=== PATIENT | female | born 1975 ===

== ENCOUNTER 2020-11-13 09:40 | Outpatient (REF) | payer MEDICAID, SELFPAY ==
--- NOTE | 2020-11-13 | PFT_ITS ---
INDICATION: Asthma. SPIROMETRY: The FEV1 to FVC of 86% with an FEV1 of 2.11 L, which is 66% predicted and FVC of 2.46 L, which is 63% predicted. No significant response to bronchodilators noted. The patient does have some small airways disease consistent with history of asthma. Maximum voluntary ventilation 90% predicted. LUNG VOLUMES: Total lung capacity 66% predicted with a residual volume of 79% predicted. DIFFUSION CAPACITY: DLCO 55% predicted. COMPARISONS: None. INTERPRETATION: No obstructive ventilatory defect. No significant response to bronchodilators noted, although the patient does have some small airways disease. Normal maximal voluntary ventilation. However, the patient does have a moderate restrictive ventilatory defect suggestive of restrictive lung disease. The patient does have an elevated BMI and would need to assess the expiratory reserve volume. In the meantime, the patient does also have some moderate diffusion impairment secondary to the above. It does correct to normal when correcting for the alveolar volume suggesting that there is some degree of hypoexpansion of the lungs. Clinical correlation warranted. MD CB Xie/FABBY / [id number]
== END 2020-11-13 09:41 | disposition home or self-care (01) ==
LOC: HO.RESP 09:40
PROVIDERS: Visit Provider Internal Medicine
DX: J45.909 Unspecified asthma, uncomplicated (principal)
CPT/HCPCS: 94060; 94727; 94729

== ENCOUNTER 2020-12-03 07:30 | Outpatient (REF) | payer MEDICAID, SELFPAY | END 2020-12-03 07:31 | disposition home or self-care (01) | LOC: HO.LAB 07:30 | PROVIDERS: Visit Provider Internal Medicine | DX: Z20.822 Contact with and (suspected) exposure to COVID-19 (principal) | CPT/HCPCS: 36415; C9803; U0003; U0005 ==

== ENCOUNTER 2021-07-29 11:29 | Emergency (ER) | payer MEDICAID, SELFPAY ==
[2021-07-29 11:42] VITALS: BP 136/78; PULSE 96; RESP 18; TEMP 37.2; O2SAT 98; BMI 33.8
--- NOTE | 2021-07-29 13:56 | ED.GENADULT ---
HPI - General Adult General Chief complaint: General Medical Stated complaint: Multiple complaints Time Seen by Provider: 07/29/21 13:38 Source: patient Mode of arrival: ambulatory Limitations: no limitations History of Present Illness HPI narrative: Patient presents to ED for multiple complaints. Before I can go further into complaints or address and come up with plan patient states she had to leave and be with her daughter who was afraid due to her about to have a procedure. Patient states she will come back tomorrow. Patient did not stay for discharge papers or physical exam. Related Data Allergies Allergy/AdvReac Type Severity Reaction Status Date / Time aspirin [ASPIRIN] Allergy Unknown TACHYCARDIA, Unverified 06/21/20 16:12 heart racing ibuprofen [From MOTRIN] Allergy Unknown N/V Unverified 06/21/20 16:12 penicillin V Allergy Unknown rash, Unverified 09/21/19 00:00 itch, rash Penicillins [PENICILLINS] Allergy Unknown ITCHING/JOSE Unverified 06/21/20 16:12 H Motrin Allergy Unknown vomiting Uncoded 09/21/19 00:00 PMFSH Social History Social History Advance Directives: No Advance Directives Information Provided: Yes Patient : No Physical Exam Vital Signs: Vital Signs: Last Vital Signs Temp 98.9 F 07/29/21 11:42 Pulse 96 07/29/21 11:42 Resp 18 07/29/21 11:42 BP 136/78 07/29/21 11:42 Pulse Ox 98 07/29/21 11:42 Body Mass Index 33.8 Course Course Course Narrative: Patient states she had to leave. Reevaluation(s) Reevaluation #1: Patient eloped. Time: 13:58 Medical Decision Making MDM Narrative Medical decision making narrative: Multiple complaints Discharge Plan Discharge Clinical Impression: Chronic pain Patient Disposition: Elopement Discharge Date/Time: 07/29/21 13:57
--- NOTE | 2021-07-29 13:56 | PC.NURSE ---
PT CAME TO THIS RN STATING SHE NEEDS TO LEAVE TO BE WITH ANOTHER PATIENT IN THE ER WHO IS ASKING FOR HER. PT STATES SHE WILL RETURN ANOTHER TIME TO BE SEEN.
== END 2021-07-29 13:57 | disposition left against medical advice (07) ==
PROVIDERS: Emergency Provider Emergency Medicine; PCP Psychiatry & Neurology Psychiatry
DX: G89.29 Other chronic pain (principal)
CPT/HCPCS: 99281; 99282

== ENCOUNTER 2022-03-31 11:07 | Emergency (ER) | payer MEDICAID, SELFPAY ==
[2022-03-31 11:47] VITALS: BP 132/81; PULSE 80; RESP 16; TEMP 35.7; O2SAT 98; BMI 32.8
[2022-03-31] MEDS: Tetracaine HCl/PF 0.5% Oph Sol 4 ML DROPS 1 DROP EYE-RIGHT (11:59)
[2022-03-31] MEDS: Fluorescein Sodium STRIP 1 STRIP EYE-RIGHT (11:59)
--- NOTE | 2022-03-31 12:26 | ED.EYEPROB ---
HPI - Eye Problem General Chief complaint: Eye Problems Stated complaint: right eye glued closed Time Seen by Provider: 03/31/22 11:53 Source: patient and family Mode of arrival: ambulatory Limitations: no limitations History of Present Illness HPI Narrative: 46 years old female came in for evaluation of right eye pain and photophobia. While applying eye glue for eyelashes extension 2 days ago some of the glue went on her eye causing severe irritation, patient initially was not able to open her eyes which she forced them to open, patient is complaining of right eye redness and severe pain was seen at the urgent care 2 days ago diagnosed her with corneal abrasion and patient was prescribed erythromycin ointment patient returned today for worsening of the pain. Related Data Previous Rx's Medication Instructions Recorded erythromycin 5 mg/gram (0.5 %) eye 0.5 inch ophthalmic (eye) TID #3.5 03/31/22 ointment grams oxycodone 5 mg tablet 5 mg PO TID PRN pain #14 tabs 03/31/22 Allergies Allergy/AdvReac Type Severity Reaction Status Date / Time aspirin [ASPIRIN] Allergy Unknown TACHYCARDIA, Unverified 06/21/20 16:12 heart racing ibuprofen [From MOTRIN] Allergy Unknown N/V Unverified 06/21/20 16:12 penicillin V Allergy Unknown rash, Unverified 09/21/19 00:00 itch, rash Penicillins [PENICILLINS] Allergy Unknown ITCHING/JOSE Unverified 06/21/20 16:12 H Motrin Allergy Unknown vomiting Uncoded 09/21/19 00:00 Review of Systems Review of Systems: All other systems are reviewed and are negative Constitutional: Reports as per HPI and Reports no additional constitutional complaints Eyes: Reports as per HPI and Reports no additional eye complaints Reports system reviewed and no additional complaints, except as documented Cardiovascular: Reports as per HPI and Reports no additional cardiovascular complaints Respiratory: Reports as per HPI and Reports no additional respiratory complaints Gastrointestinal: Reports as per HPI and Reports no additional gastrointestinal complaints Genitourinary: Reports no additional female genitourinary complaints Musculoskeletal: Reports no additional musculoskeletal complaints Skin/Breast: Reports system reviewed and no additional complaints, except as docu Psychiatric: Reports no additional psychiatric complaints Endocrine: Reports no additional endocrine complaints Hematologic/Lymphatic: Reports no additional hematologic/lymphatic complaints Allergic/Immunologic: Reports no additional allergic/immunologic complaints Reports system reviewed and no additional complaints, except as documented and Reports Abnormal speech present [facility] Social History Social History Advance Directives: No Advance Directives Information Provided: No Physical Exam Vital Signs: Vital Signs: Last Vital Signs Temp 96.3 F L 03/31/22 11:47 Pulse 80 03/31/22 11:47 Resp 16 03/31/22 11:47 BP 132/81 03/31/22 11:47 Pulse Ox 98 03/31/22 11:47 O2 Del Method 03/31/22 11:47 BMI result Body Mass Index 32.8 Vital signs have been reviewed as appeared to be correct. Blood pressure normal. Heart rate normal. Respiration rate normal. Temperature normal. Oxygen saturation normal. Appearance: Alert. Oriented X3. No acute distress. Head: Normal external exam. Normocephalic. Atraumatic. No Bernard signs noted. No raccoon eyes noted Eyes: After using tetracaine and applying fluorescein dye. PERRLA. EOMI. Visual acuity is 20/30 on the right, 20 of her surgery on the left. Eyelids: Mild swelling more on the upper right eyelid. Conjunctiva: Injected on the right side. Multiple small area of fluorescein uptake on the conjunctiva. Pupil: 2 mm reactive bilaterally. There is a small area of fluorescein uptake on 09:00 o'clock. IOP: 14 on the right 10 on the left ENT: TM's Normal. Pharynx normal. Uvula midline. Moist mucous membranes. No trismus noted. No drooling noted. No muffled voice noted. Neck: Normal inspection. Neck supple. FROM. No adenopathy. Thyroid Normal. No meningeal signs. No neck mass noted. CVS: Normal heart rate and rhythm. Heart sound normal. No murmurs noted. Pulses normal throughout. Respiratory: No respiratory distress. Painless inspiration. Breath sounds normal. No wheezes/rales/rhonchi noted. Chest nontender. No accessory muscle usage noted or decreased air movement noted. Abdomen: Soft and nontender. Bowel sounds normal in all 4 quadrants. No distention noted. No organomegaly noted. No visible injury noted. Back: No CVA tenderness. Full range of motion noted. Skin: Skin warm and dry. Normal skin color. Normal skin turgor. No rashes/lesions/lacerations noted. Extremities: No lower extremity edema. Extremities exhibit normal range of motion. Extremities nontender. Neuro: Oriented X 3. Cranial nerve exam: II-XII are grossly intact No motor deficit. No sensory deficit. Reflexes normal. Course Course Course Narrative: Assessment and plan. 46-year-old female status post chemical conjunctivitis with a small corneal abrasion patient was seen 2 days ago at the urgent care and prescribed erythromycin a cane for severe pain in the right eye. As recommended to continue with erythromycin, follow-up was eye doctor, will prescribe a few pills of oxycodone as needed for pain. Discharge Plan Discharge Clinical Impression: Corneal abrasion, Chemical conjunctivitis Patient Disposition: Home, Self-Care Instructions: Corneal Abrasion (ED), Conjunctivitis (ED) Prescriptions: New erythromycin 5 mg/gram (0.5 %) ointment 0.5 inch ophthalmic (eye) TID Qty: 3.5 0RF Rx Instructions: Apply to the right eye I have inch ribbon inside the eye 3 times a day for 5 days. oxycodone 5 mg tablet 5 mg PO TID PRN (Reason: pain) Qty: 14 0RF Rx Instructions: Partial Fill upon patient request. Referrals: Bony Clark MD [Primary Care Provider] - Flaco Katz [Physician] -
[2022-03-31] MEDS: oxyCODONE HCl Immed Release 5 MG TABLET PO (12:40)
== END 2022-03-31 12:52 | disposition home or self-care (01) ==
PROVIDERS: Emergency Provider Emergency Medicine; PCP Internal Medicine
DX: S05.01XA Injury of conjunctiva and corneal abrasion without foreign body, right eye, initial encounter (principal); H10.9 Unspecified conjunctivitis; H53.141 Visual discomfort, right eye; X58.XXXA Exposure to other specified factors, initial encounter; Y93.9 Activity, unspecified; Y92.9 Unspecified place or not applicable; Y99.9 Unspecified external cause status; Z79.899 Other long term (current) drug therapy
CPT/HCPCS: 99284

== ENCOUNTER 2022-07-02 03:51 | Emergency (ER) | payer MEDICAID, SELFPAY ==
--- NOTE | ~2022-07-02 | XR_ITS ---
EXAMINATION: XR ELBOW, RIGHT CLINICAL INFORMATION: Pain COMPARISON: None TECHNIQUE: AP, lateral, and oblique views of the right elbow. FINDINGS: The bones and soft tissues are normal. No fracture or joint effusion. Alignment is anatomic. Joint spaces are maintained. XR/XR elbow RT 2V IMPRESSION: Normal right elbow.
[2022-07-02 03:55] VITALS: BP 135/84; PULSE 93; RESP 19; TEMP 36.1; O2SAT 96; BMI 32.8
--- NOTE | 2022-07-02 08:32 | ED.EXTPRO ---
HPI - Extremity Problem General Chief complaint: Extremity Problem Stated complaint: Elbow pain/No inj Time Seen by Provider: 07/02/22 08:27 Source: patient Mode of arrival: ambulatory Limitations: no limitations History of Present Illness MD Complaint: extremity pain and joint pain Onset (ago): day(s) (few) Pain Consistency: constant Location: right and elbow Quality: aching Radiation: none Relieving factors: immobilization Exacerbating factors: range of motion and palpation Associated symptoms: denies other symptoms Context: other (cleans and moves her arm a lot at home) Related Data Previous Rx's Medication Instructions Recorded erythromycin 5 mg/gram (0.5 %) eye 0.5 inch ophthalmic (eye) TID #3.5 03/31/22 ointment grams oxycodone 5 mg tablet 5 mg PO TID PRN pain #14 tabs 03/31/22 cyclobenzaprine 10 mg tablet 10 mg PO TID PRN muscle spasm #14 07/02/22 tabs diclofenac sodium 1 % topical gel 2 g topical QID #100 grams 07/02/22 (Voltaren Arthritis Pain) prednisone 20 mg tablet 20 mg PO DAILY 5 days #5 tabs 07/02/22 Allergies Allergy/AdvReac Type Severity Reaction Status Date / Time aspirin [ASPIRIN] Allergy Unknown TACHYCARDIA, Unverified 06/21/20 16:12 heart racing ibuprofen [From MOTRIN] Allergy Unknown N/V Unverified 06/21/20 16:12 penicillin V Allergy Unknown rash, Unverified 09/21/19 00:00 itch, rash Penicillins [PENICILLINS] Allergy Unknown ITCHING/JOSE Unverified 06/21/20 16:12 H Motrin Allergy Unknown vomiting Uncoded 09/21/19 00:00 Review of Systems Review of Systems: Constitutional : No Fever, No Chills ENT/Mouth : No Ear Pain, No Hoarseness, No sore throat Cardiovascular : No Chest Pain, No SOB Respiratory : No Cough, No Dyspnea Gastrointestinal : No Nausea, No Vomiting, No Diarrhea, No abdominal Pain Genitourinary : No Dysuria, No Hematuria Musculoskeletal : positive joint pain, No Myalgias, No Joint Swelling Skin : No Skin lacerations, No rash Neuro : No Weakness, No Numbness, No Loss of Consciousness, No Dizziness, No Headache PMFSH Past Medical History Attestation statement: The following information was validated with the patient. Medical History Diabetes mellitus Social History Social History (Updated 07/02/22 @ 08:40 by Sofía Yin DO) Patient Tobacco Use Status: Never used Tobacco Advance Directives: No Advance Directives Information Provided: No Physical Exam Vital Signs: Vital Signs: Last Vital Signs Temp 96.9 F 07/02/22 03:55 Pulse 93 07/02/22 03:55 Resp 19 07/02/22 03:55 BP 135/84 07/02/22 03:55 Pulse Ox 96 07/02/22 03:55 O2 Del Method 07/02/22 03:55 BMI result Body Mass Index 32.8 Appearance: Alert. Oriented X3. No acute distress. Eyes: Pupils equal, round and reactive to light. ENT: Pharynx normal. Neck: Normal inspection. Neck supple. CVS: Pulses normal. Respiratory: No respiratory distress. Abdomen: Soft and nontender. Skin: Skin warm and dry. Normal skin color. Extremities: No lower extremity edema. R elbow ttp along lateral epicondyle - reproduces pain 2+ radial pulse, SILT intact, no joint effusion no swelling does have ROM. no redness or warmth Neuro: Oriented X 3. No motor deficit. No sensory deficit. MDM - Extremity (Nontraumatic) MDM Narrative Medical decision making narrative: 46 yo female with hx of DM, R handed reports she cleans her house a lot and the past few days has lateral R elbow pain - no signs of swelling, xray negative, distal NV intact. ttp along lateral epicondyle consistent with tendonitis - discussed wrap OTC for treatment, low dose steroid to monitor her sugars at home, flexeril, topical diclofenac doubt will cause GI distress. Follow up with her PCP Discharge Plan Discharge Clinical Impression: Left elbow tendinitis Patient Disposition: Home, Self-Care Instructions: Tennis Elbow (ED), Tendinitis (ED) Additional Instructions: return to ED for any worsening symptoms or concerns you can buy an over the counter wrap to apply comfort and pressure to the elbow area please monitor blood sugars while on prednisone. Prescriptions: New cyclobenzaprine 10 mg tablet 10 mg PO TID PRN (Reason: muscle spasm) Qty: 14 0RF prednisone 20 mg tablet 20 mg PO DAILY 5 Days Qty: 5 0RF diclofenac sodium [Voltaren Arthritis Pain] 1 % gel 2 g topical QID Qty: 100 0RF Rx Instructions: apply to single elbow, wrist or hand; for hand includes palm/fingers/back of hand No Action erythromycin 5 mg/gram (0.5 %) ointment 0.5 inch ophthalmic (eye) TID Qty: 3.5 0RF Rx Instructions: Apply to the right eye I have inch ribbon inside the eye 3 times a day for 5 days. oxycodone 5 mg tablet 5 mg PO TID PRN (Reason: pain) Qty: 14 0RF Rx Instructions: Partial Fill upon patient request. Referrals: [facility] [Primary Care Provider] - 3 days (if not better)
--- NOTE | 2022-07-02 08:46 | PC.NURSE ---
PT EVALUATED BY PROVIDER. PT AWAKE, ALERT AND ORIENTED X 3 SKIN WARM AND DRY. RESP UNLABORED. +CMS, NO ACUTE DISTRESS NOTED. PLAN IS FOR DC HOME. PT AGREEABLE.
== END 2022-07-02 08:59 | disposition home or self-care (01) ==
PROVIDERS: Emergency Provider Emergency Medicine
DX: M77.12 Lateral epicondylitis, left elbow (principal); M25.521 Pain in right elbow; E11.9 Type 2 diabetes mellitus without complications
CPT/HCPCS: 73070; 99282; 99283

== ENCOUNTER 2022-12-04 23:06 | Emergency (ER) | payer MEDICAID, SELFPAY ==
--- NOTE | 2022-12-05 | PC.NURSE ---
Pt not in [facility] when called. Per registration, pt went to her car and hasn't returned.
== END 2022-12-05 00:33 | disposition left against medical advice (07) ==
PROVIDERS: Emergency Provider Emergency Medicine
DX: M79.602 Pain in left arm (principal)

== ENCOUNTER 2023-05-26 08:42 | Outpatient (REF) | payer MEDICAID, SELFPAY ==
[2023-05-26 14:28] LABS: Estimated Average Glucose 203 mg/dL; Hemoglobin A1c % 8.7 % (<6.0)
[2023-05-26 14:49] LABS: Microalbum/Creatinine Ratio Ur 8.1 ug/mg cr (<30)
[2023-05-26 15:03] LABS: Alanine Aminotransferase 20 U/L (0-31); Alkaline Phosphatase 88 U/L (39-117); Anion Gap 16 (12-20); Aspartate Amino Transferase 14 U/L (5-31); Bilirubin Total 0.3 mg/dL (0.0-1.0); Blood Urea Nitrogen 15 mg/dL (9-16); Calcium 9.8 mg/dL (8.4-10.2); Carbon Dioxide 24 mmol/L (22-29); Chloride 101 mmol/L (96-108); Cholesterol 208 mg/dL (<200); Estimated Glomerular Filt Rate > 60; Glucose Fasting 216 mg/dL (60-99); HDL Cholesterol 45 mg/dL (>40); LDL Cholesterol Calculated 128 mg/dL (<100); Potassium 4.3 mmol/L (3.3-5.1); Sodium 137 mmol/L (135-145); Total Protein 7.4 g/dL (6.5-8.0); Triglycerides 177 mg/dL (<150)
[2023-05-26 15:11] LABS: TSH reflex Free T4 2.27 uIU/mL (0.32-4.0)
[2023-05-27 03:57] LABS: ~HepC Num1 0.11 S/CO (0.00-0.79); ~Hepatitis C Antibody Nonreactive (Nonreactive)
[2023-05-30 14:53] LABS: HIV RNA PCR Qn Copies Not Detected Copies/mL; HIV RNA PCR Qn Log Copies Not Detected Log cps/mL
== END 2023-05-26 08:43 | disposition home or self-care (01) ==
LOC: HO.CHCLDS 08:42
PROVIDERS: Visit Provider Internal Medicine
DX: Z11.4 Encounter for screening for human immunodeficiency virus [HIV] (principal); E11.42 Type 2 diabetes mellitus with diabetic polyneuropathy
CPT/HCPCS: 36415; 80053; 80061; 82043; 83036; 84443; 86803; 87536; 87900

== ENCOUNTER 2024-01-14 09:47 | Outpatient (REF) | payer MEDICAID, SELFPAY ==
[2024-01-14 15:11] LABS: Estimated Average Glucose 226 mg/dL; Hemoglobin A1c % 9.5 % (<6.0)
[2024-01-14 15:12] LABS: Alanine Aminotransferase 22 U/L (0-31); Anion Gap 14 (12-20); Aspartate Amino Transferase 14 U/L (5-31); Bilirubin Total 0.4 mg/dL (0.0-1.0); Blood Urea Nitrogen 11 mg/dL (9-16); Calcium 9.6 mg/dL (8.4-10.2); Carbon Dioxide 26 mmol/L (22-29); Chloride 101 mmol/L (96-108); Cholesterol 208 mg/dL (<200); Estimated Glomerular Filt Rate > 60; Glucose Random 263 mg/dL (60-115); HDL Cholesterol 50 mg/dL (>40); LDL Cholesterol Calculated 129 mg/dL (<100); Potassium 4.7 mmol/L (3.3-5.1); Sodium 136 mmol/L (135-145); Total Protein 7.4 g/dL (6.5-8.0); Triglycerides 147 mg/dL (<150)
[2024-01-14 15:24] LABS: Alkaline Phosphatase 76 U/L (39-117)
[2024-01-18 17:18] LABS: HIV RNA PCR Qn Copies Not Detected Copies/mL; HIV RNA PCR Qn Log Copies Not Detected Log cps/mL
== END 2024-01-14 09:48 | disposition home or self-care (01) ==
LOC: HO.CHCLDS 09:47
PROVIDERS: Visit Provider Internal Medicine
DX: Z11.4 Encounter for screening for human immunodeficiency virus [HIV] (principal); E11.42 Type 2 diabetes mellitus with diabetic polyneuropathy
CPT/HCPCS: 36415; 80053; 80061; 83036; 87536; 87900

== ENCOUNTER 2024-01-15 19:19 | Emergency (ER) | payer MEDICAID, SELFPAY ==
[2024-01-15 19:40] VITALS: BP 129/73; PULSE 101; RESP 18; TEMP 37.1; O2SAT 99; BMI 31.1
--- NOTE | 2024-01-15 19:40 | ED_ITS ---
HPI - Dental/Oral General Chief complaint: Dental/Oral Stated complaint: Dental pain Time Seen by Provider: 01/15/24 19:51 Source: patient Mode of arrival: ambulatory Limitations: no limitations History of Present Illness HPI Narrative: Patient is a 48-year-old female who presents emergency department for evaluation of right lower tooth pain, onset 2 weeks ago, radiating into her right ear and has a headache. She has been evaluated by her dental provider twice, they have attempted to extract the tooth but after numbing it she has severe pain. They have prescribed an additional course of antibiotics, and has plan for follow-up this week. She states that the pain persists and is progressing despite using Tylenol in the antibiotics. Scheduled follow-up appointment 01/22/2024 with her dentist. Denies chest pain, neck pain, shortness of breath, difficulty breathing Location: Tooth # (31) Related Data Previous Rx's ?Medication ?Instructions ?Recorded erythromycin 5 mg/gram (0.5 %) eye 0.5 inch ophthalmic (eye) TID #3.5 03/31/22 ointment grams oxycodone 5 mg tablet 5 mg PO TID PRN pain #14 tabs 03/31/22 cyclobenzaprine 10 mg tablet 10 mg PO TID PRN muscle spasm #14 07/02/22 tabs diclofenac sodium 1 % topical gel 2 g topical QID #100 grams 07/02/22 (Voltaren Arthritis Pain) prednisone 20 mg tablet 20 mg PO DAILY 5 days #5 tabs 07/02/22 acetaminophen 300 mg-codeine 15 mg 1 tab PO Q6H PRN pain #10 tabs 01/15/24 tablet Allergies Allergy/AdvReac Type Severity Reaction Status Date / Time aspirin [ASPIRIN] Allergy Unknown TACHYCARDIA, Verified 01/15/24 19:45 heart racing ibuprofen [From MOTRIN] Allergy Unknown N/V Verified 01/15/24 19:45 penicillin V Allergy Unknown rash, Verified 01/15/24 19:45 itch, rash Penicillins [PENICILLINS] Allergy Unknown ITCHING/JOSE Verified 01/15/24 19:45 H Motrin Allergy Unknown vomiting Uncoded 09/21/19 00:00 Review of Systems Review of Systems: Yes all other systems are reviewed and are negative PMFSH Past Medical History Attestation statement: The following information was validated with the patient. Source: old records reviewed Medical History Diabetes mellitus Social History Social History (Updated 07/02/22 @ 08:40 by Sofía Yin DO) Patient Tobacco Use Status: Never used Tobacco Physical Exam Vital Signs: Appearance: Alert. Oriented X3. No acute distress. Head: Normal external exam. Normocephalic. Atraumatic. Eyes: PERRLA. EOMI. Conjunctiva and sclera normal. Eyelids normal. ENT: EAC normal. TM's Normal. Pharynx normal. Uvula midline. Moist mucous membranes.? ?No trismus noted.? No drooling noted.? No muffled voice noted. Dentition:? Gingival within normal limits.? No fluctuance.? Not consistent with peritonsillar abscess. Not consistent with dental abscess.? No salivary duct obstruction noted. Neck: Normal inspection. Neck supple. FROM. No adenopathy. Thyroid Normal. No meningeal signs. No neck mass noted.? Trachea midline. CVS: Normal heart rate and rhythm. Heart sound normal. No murmurs noted. Pulses normal throughout. Respiratory: No respiratory distress. Painless inspiration. Breath sounds normal. No wheezes/rales/rhonchi noted. Chest nontender. ?No accessory muscle usage noted or decreased air movement noted. Back:? Full range of motion noted. Skin: Skin warm and dry.? Normal skin color.? Normal skin turgor. No rashes/lesions/lacerations noted. Extremities: Extremities exhibit normal range of motion.? Extremities nontender. Neuro: Oriented X 3.? No motor deficit.? No sensory deficit.? Reflexes normal. Medical Decision Making Medical Decision Making MDM Narrative: Patient is a 48-year-old female who presents emergency department for evaluation of persistent right lower dental pain as per HPI. Overall she is well- appearing, nontoxic, afebrile, without tachycardia tachypnea or hypoxia. On exam does not have evidence of obvious dental abscess that would be amenable to drainage. No fevers, chills, malaise, stiff neck, drooling, dysphagia. Submandibular region is soft, no palpable crepitus . Floor of the oral cavity is without erythema swelling or tenderness. She does have a history of diabetes, though at this time history and physical examination is less concerning for Jeff's angina, would defer CT imaging at this time. Discussed pain management, continued use of antibiotics as prescribed and close outpatient follow-up with her dental provider. Discussed strict return precautions. All questions answered. Stable for discharge. Differential Diagnosis Differential Diagnoses: The differential diagnosis associated with the presentation includes (See narrative above) Admission/Observation Consideration of admission/observation: Escalation of care including admission/observation considered (See narrative above) External Record Review External record reviewed: Outpatient record Tests considered The following testing was considered but not selected: See narrative above, CT deferred Prescription Management I considered prescription management with: Pain Medication and Antibiotic Chronic Conditions Patient?s care impacted by: Diabetes Discharge Plan Discharge Clinical Impression: Pain, dental Patient Disposition: Home, Self-Care Instructions: Toothache (ED) Additional Instructions: You can take ibuprofen 200 mg, 3 tablets (600mg) every 6-8 hours as needed for pain As discussed, I have sent a prescription for Tylenol with codeine to your pharmacy. This is a narcotic medication. It may make you drowsy. You should not drive, drink alcohol, or work while taking this medication. It is important that you contact your dentist first thing Thursday to arrange for follow-up. You may return back to emergency department any new or worsening symptoms or concerns. Prescriptions: New acetaminophen-codeine 300-15 mg tablet 1 tab PO Q6H PRN (Reason: pain) Qty: 10 0RF No Action cyclobenzaprine 10 mg tablet 10 mg PO TID PRN (Reason: muscle spasm) Qty: 14 0RF prednisone 20 mg tablet 20 mg PO DAILY 5 Days Qty: 5 0RF diclofenac sodium [Voltaren Arthritis Pain] 1 % gel 2 g topical QID Qty: 100 0RF Rx Instructions: apply to single elbow, wrist or hand; for hand includes palm/fingers/back of hand erythromycin 5 mg/gram (0.5 %) ointment 0.5 inch ophthalmic (eye) TID Qty: 3.5 0RF Rx Instructions: Apply to the right eye I have inch ribbon inside the eye 3 times a day for 5 days. oxycodone 5 mg tablet 5 mg PO TID PRN (Reason: pain) Qty: 14 0RF Rx Instructions: Partial Fill upon patient request. Referrals: Bony Clark MD [Primary Care Provider] - Print Language: Romanian
[2024-01-15 20:00] VITALS: BP 129/73; PULSE 101; RESP 18; TEMP 37.1
== END 2024-01-15 20:01 | disposition home or self-care (01) ==
PROVIDERS: Emergency Provider Student in an Organized Health Care Education/Training Program; PCP Internal Medicine
DX: K08.89 Other specified disorders of teeth and supporting structures (principal); E11.9 Type 2 diabetes mellitus without complications; Z88.0 Allergy status to penicillin; Z88.6 Allergy status to analgesic agent
CPT/HCPCS: 99282; 99283

== ENCOUNTER 2024-02-05 18:27 | Emergency (ER) | payer MEDICAID, SELFPAY ==
--- NOTE | ~2024-02-05 | CT_ITS ---
EXAMINATION: CT ABDOMEN AND PELVIS WITH CONTRAST CLINICAL INFORMATION: Diffuse abdominal pain COMPARISON: 05/28/2016 TECHNIQUE: Multidetector volumetric images were obtained from the superior aspect of the liver through the pubic symphysis following administration 85 mL of Omnipaque 350 intravenous contrast. Sagittal and coronal reformatted images were obtained on the technologist's workstation. Oral contrast: No This CT examination was performed using dose optimization techniques as appropriate, variously including the following: *Automated exposure control *Adjustment of mA and/or kV according to patient size (this includes techniques or standardized protocols for targeted exams where dose is matched to indication/reason for exam; i.e. extremities or head) *Use of iterative reconstruction technique DLP: 732 mGy-cm FINDINGS: LUNG BASES: Calcified granuloma in the left lower lobe. LIVER, GALLBLADDER, AND BILIARY TREE: The liver is enlarged, measuring approximately 22 cm in length. No focal hepatic lesion or biliary ductal dilatation is present. The gallbladder is unremarkable with no evidence of radiopaque gallstones, gallbladder wall thickening, or obvious pericholecystic inflammatory changes. PANCREAS: There is subtle stranding adjacent to the proximal pancreas and duodenum, which could reflect mild sequelae of pancreatitis or duodenitis. SPLEEN: Unremarkable. ADRENAL GLANDS: Unremarkable. KIDNEYS AND URETERS: Bilateral nephrograms are symmetric. No hydronephrosis or obstructing calculus identified. BLADDER: Unremarkable. GASTROINTESTINAL TRACT: No evidence of bowel obstruction or significant wall thickening. The appendix is unremarkable. No free fluid or free air is seen. ABDOMINAL WALL: No significant hernia is appreciated. LYMPH NODES: Normal. VASCULAR: Mild atherosclerotic plaque and calcification of the distal aorta. PELVIC VISCERA: Unremarkable. OSSEOUS STRUCTURES: Degenerative change in the spine at L5-S1. CT/CT abdomen pelvis w IV con IMPRESSION: 1. Subtle stranding adjacent to the proximal pancreas and duodenum, which could reflect mild sequelae of pancreatitis or duodenitis. 2. Hepatomegaly.
--- NOTE | ~2024-02-05 | XR_ITS ---
EXAMINATION: XR ABDOMEN KUB CLINICAL INDICATION: No bowel movement x1 week. COMPARISON: None available. TECHNIQUE: AP view of the abdomen. FINDINGS: The bowel gas pattern is normal with no evidence of ileus or obstruction. There is a moderate volume of stool within the left colon. No unusual soft tissue calcifications are noted. The bones are unremarkable. XR/XR KUB IMPRESSION: Nonobstructive bowel gas pattern. Moderate volume of stool within the left colon.
[2024-02-05 18:47] VITALS: BP 119/83; PULSE 95; RESP 18; TEMP 36.6; O2SAT 99; BMI 31.0
--- NOTE | 2024-02-05 18:52 | ED_ITS ---
HPI - Abdominal Pain General Chief Complaint: Abdominal Pain Stated Complaint: constipation for 4 days Time Seen by Provider: 02/05/24 21:02 Source: patient Mode of arrival: ambulatory Limitations: no limitations History of Present Illness HPI narrative: Patient comes to the emergency room complaining days of diffuse abdominal pain. Patient states that she was seen at [facility] 2 days ago, was given medication for constipation. Patient states that the pain has gradually been getting worse. Patient denies nausea vomiting or diarrhea. Related Data Previous Rx's ?Medication ?Instructions ?Recorded erythromycin 5 mg/gram (0.5 %) eye 0.5 inch ophthalmic (eye) TID #3.5 03/31/22 ointment grams oxycodone 5 mg tablet 5 mg PO TID PRN pain #14 tabs 03/31/22 cyclobenzaprine 10 mg tablet 10 mg PO TID PRN muscle spasm #14 07/02/22 tabs diclofenac sodium 1 % topical gel 2 g topical QID #100 grams 07/02/22 (Voltaren Arthritis Pain) prednisone 20 mg tablet 20 mg PO DAILY 5 days #5 tabs 07/02/22 acetaminophen 300 mg-codeine 15 mg 1 tab PO Q6H PRN pain #10 tabs 01/15/24 tablet Allergies Allergy/AdvReac Type Severity Reaction Status Date / Time aspirin [ASPIRIN] Allergy Unknown TACHYCARDIA, Verified 02/05/24 18:49 heart racing ibuprofen [From MOTRIN] Allergy Unknown N/V Verified 02/05/24 18:49 penicillin V Allergy Unknown rash, Verified 02/05/24 18:49 itch, rash Penicillins [PENICILLINS] Allergy Unknown ITCHING/JOSE Verified 02/05/24 18:49 H Motrin Allergy Unknown vomiting Uncoded 09/21/19 00:00 Review of Systems Review of Systems Constitutional : No Weight loss, No Fever, No Chills, No Night Sweats, No Fatigue, No Malaise ENT/Mouth : No Hearing loss, No Ear Pain, No Nasal Congestion, No Sinus Pain, No Hoarseness, No sore throat, No Rhinorrhea, No Swallowing Difficulty Eyes: No Eye Pain, No Swelling, No Redness, No Foreign Body, No Discharge, No Vision Changes Cardiovascular : No Chest Pain, No SOB, No Dyspnea on Exertion, No Orthopnea, No Edema, No Palpitations Respiratory : No Cough, No Sputum, No Wheezing, No Smoke Exposure, No Dyspnea Gastrointestinal : No Nausea, No Vomiting, No Diarrhea, complaining of constipation, diffuse abdominal pain Genitourinary : no irregular bleeding, No Dysuria, No Urinary Frequency, No Hematuria, No Urinary Incontinence, No Urgency, No Flank Pain, No Urinary Flow Changes, No Hesitancy Musculoskeletal : No joint pain, No Myalgias, No Joint Swelling Skin : No Skin Lesions, No rash Neuro : No Weakness, No Numbness, No Paresthesias, No Loss of Consciousness, No Dizziness, No Headache Psych : No Anxiety/Panic, No Depression, No SI/HI/AH/VH, No Social Issues, Heme/Lymph: No Bruising, No Bleeding,No Lymphadenopathy Endocrine : No Polyuria, No Polydipsia, No Temperature Intolerance [facility] Past Medical History Medical History Diabetes mellitus Social History Social History (Updated 07/02/22 @ 08:40 by Sofía Yin DO) Patient Tobacco Use Status: Never used Tobacco Smoked in Last 30 Days: No Use of substances other than those prescribed or required for medical reasons: No Advance Directives: No Advance Directives Information Provided: No Do you have a plan to hurt others: No Plan Patient : No Physical Exam ED Vital Signs: Vital Signs - 24 hr 02/05/24 18:47 02/05/24 20:33 Temperature 97.8 F 98.0 F Pulse Rate 95 97 Respiratory Rate 18 16 Blood Pressure 119/83 131/88 Pulse Oximetry 99 98 Oxygen Delivery Method Room Air Room Air BMI result Body Mass Index 31.0 Const Other: Appearance: Alert. Oriented X3. No acute distress. Eyes: Pupils equal, round and reactive to light. ENT: Pharynx normal. Neck: Normal inspection. Neck supple. No lymph nodes noted. No crepitus CVS: Normal heart rate and rhythm. Pulses normal. Normal S1 and S2 Respiratory: No respiratory distress. Breath sounds normal. No Wheezing. No rales Abdomen: Soft distended, mild discomfort to palpation in all quadrants, no rebound, no guarding Skin: Skin warm and dry. Normal skin color. Normal skin turgor. Extremities: No lower extremity edema. No Lacerations. No Rash Neuro: Oriented X 3. No motor deficit. No sensory deficit. Moving all extremities. No slurred speech. CN 2 through 12 grossly intact Psych: calm, cooperative, normal affect Course Course Course Narrative: This is a rapid medical exam performed by Tony Monroe NP: Additional HPI, ROS, PE not included below will be deferred to primary provider. Patient is a 48-year-old female presenting to the emergency department with complaint constipation and abdominal pain for the past week. Seen at [facility] 4 days ago and advised to use [id number] medication for gas, states symptoms have not improved with this. Unsure she is . Denies fevers, vomiting. Plan: labs, UA, KUB Medical Decision Making Medical Decision Making [facility] Narrative: -my interpretation KUB: No obvious signs of small-bowel obstruction, moderate amount of stool within the colon - my interpretation of labs: White blood cell count slightly elevated, no significant electrolyte abnormality, glucose 267, LFTs normal, lipase slightly elevated, urinalysis negative for UTI -the position of CT scan of the abdomen: No SBO. Radiology report: Possible acute pancreatitis -given patient's symptoms, labs and CT scan, patient does have pancreatitis. -I discussed the above-mentioned with the patient, I discussed with the patient that admission is recommended. However, patient would like to be discharged home. Patient instructed to take clear liquids for 48 hours and medication will be sent to her pharmacy. Discussed with the patient that if she has any further pain, to return to the emergency room Differential Diagnosis Differential Diagnoses: The differential diagnosis associated with the presentation includes (Small-bowel obstruction, pancreatitis, cholecystitis) Admission/Observation Consideration of admission/observation: Escalation of care including admission/observation considered (Admission was offered, patient declined) Lab Data [facility] Lab Attestation statement: I reviewed the patient's lab results. 02/05/24 19:02 02/05/24 19:02 Labs: Lab Results 02/05/24 02/05/24 Range/Units 19:02 21:29 WBC 11.3 H (4.8-10.8) X10*3/uL RBC 4.88 (4.20-5.50) X10*6/uL Hgb 15.5 (12.0-16.0) g/dl Hct 43.6 (37.0-47.0) % MCV 89.3 (80.0-98.0) fL MCH 31.8 (27.0-33.0) pg MCHC 35.6 H (31.0-35.0) g/dl RDW 11.8 (11.0-16.0) % Plt Count 259 (160-400) X10*3/uL MPV 9.0 L (9.4-12.3) fL Immature Gran % (Auto) 0.2 (0.0-0.4) % Neut % (Auto) 54.4 (45-73) % Lymph % (Auto) 39.1 (20-40) % [place] % (Auto) 4.7 (2-11) % Eos % (Auto) 1.1 (0-4) % Baso % (Auto) 0.5 (0-2) % Lymph # (Auto) 4.4 (1.2-4.9) X10*3/uL [place] # (Auto) 0.5 (0.1-1.2) X10*3/uL Eos # (Auto) 0.1 (0.0-0.4) X10*3/uL Baso # (Auto) 0.1 (0.0-0.2) X10*3/uL Abs Immat Gran (auto) 0.02 (0.00-0.03) X10*3/uL Absolute Neuts (auto) 6.2 (2.0-8.3) x10*3/uL Absolute Nucleated RBC 0.000 (0.0-0.012) X10*3/uL Nucleated RBC % (auto) 0.0 (0.0-0.2) /100WBC PT 10.0 L (11.1-13.3) SEC INR 0.8 L (0.9-1.1) Sodium 138 (135-145) mmol/L Potassium 4.0 (3.3-5.1) mmol/L Chloride 102 (96-108) mmol/L Carbon Dioxide 25 (22-29) mmol/L Anion Gap 15 (12-20) BUN 17 H (9-16) mg/dL Creatinine 0.84 (0.5-1.4) mg/dL Estim Creat Clear Calc 93.2 Estimated GFR > 60 POC Glucose 237 H (60-115) mg/dL Random Glucose 267 H (60-115) mg/dL Calcium 9.9 (8.4-10.2) mg/dL Total Bilirubin 0.2 (0.0-1.0) mg/dL AST 13 (5-31) U/L ALT 23 (0-31) U/L Alkaline Phosphatase 83 (39-117) U/L Total Protein 7.6 (6.5-8.0) g/dL Albumin 4.1 (3.5-5.0) g/dL Amylase 51 (28-100) U/L Lipase 97 H (8-78) U/L Beta HCG, Quant < 2 mIU/mL Urine Color Yellow Urine Appearance Clear Urine pH 6.0 (5.0-9.0) Ur Specific [place] >= 1.030 H (1.005-1.025) Urine Protein Negative (Neg-Trace) mg/dL Urine Glucose (UA) >=1000 H (Negative) mg/dL Urine Ketones Trace (Negative) mg/dL Urine Blood Negative (Negative) Urine Nitrite Negative (Negative) Ur Leukocyte Esterase Negative (Negative) Urine RBC 0-2 (0-2) /HPF Urine WBC 0-5 (0-5) /HPF Ur Squamous Epith Cells 3-5 (0-2) /HPF Urine Bacteria None Seen (None Seen) Hyaline Casts 0-2 (0-2) /LPF Independent Interpretation I performed an independent interpretation of an: Plain X-Ray and CT Scan Radiology Impression Discussion of test interpretation with radiology: I have reviewed the radiologist's reading. Radiologist Impression: FINDINGS: The bowel gas pattern is normal with no evidence of ileus or obstruction. There is a moderate volume of stool within the left colon. No unusual soft tissue calcifications are noted. The bones are unremarkable. XR/XR KUB IMPRESSION: Nonobstructive bowel gas pattern. Moderate volume of stool within the left colon. FINDINGS: LUNG BASES: Calcified granuloma in the left lower lobe. LIVER, GALLBLADDER, AND BILIARY TREE: The liver is enlarged, measuring approximately 22 cm in length. No focal hepatic lesion or biliary ductal dilatation is present. The gallbladder is unremarkable with no evidence of radiopaque gallstones, gallbladder wall thickening, or obvious pericholecystic inflammatory changes. PANCREAS: There is subtle stranding adjacent to the proximal pancreas and duodenum, which could reflect mild sequelae of pancreatitis or duodenitis. SPLEEN: Unremarkable. ADRENAL GLANDS: Unremarkable. KIDNEYS AND URETERS: Bilateral nephrograms are symmetric. No hydronephrosis or obstructing calculus identified. BLADDER: Unremarkable. GASTROINTESTINAL TRACT: No evidence of bowel obstruction or significant wall thickening. The appendix is unremarkable. No free fluid or free air is seen. ABDOMINAL WALL: No significant hernia is appreciated. LYMPH NODES: Normal. VASCULAR: Mild atherosclerotic plaque and calcification of the distal aorta. PELVIC VISCERA: Unremarkable. OSSEOUS STRUCTURES: Degenerative change in the spine at L5-S1. CT/CT abdomen pelvis w IV con IMPRESSION: 1. Subtle stranding adjacent to the proximal pancreas and duodenum, which could reflect mild sequelae of pancreatitis or duodenitis. 2. Hepatomegaly. Medications Administered Discontinued Medications Generic Name Dose Route Start Last Admin Trade Name Freq PRN Reason Stop Dose Admin Iohexol 100 ml 02/05/24 22:23 02/05/24 22:23 Iohexol 350 Mg/Ml 100 Ml Infus..Btl IV 02/05/24 22:24 85 ml ONCE ONE Administration Ketorolac Tromethamine 60 mg 02/05/24 21:10 02/05/24 21:23 Ketorolac Tromethamine 60 Mg/2 Ml Vial IM 02/05/24 21:11 60 mg ONCE ONE Administration Ondansetron HCl 4 mg 02/05/24 21:10 02/05/24 21:23 Ondansetron Odt 4 Mg Tab.Rapdis TRANSLINGU 02/05/24 21:11 Not Given ONCE ONE Critical Care Time Critical Care Time Critical Care Time: Yes Total Critical Care Time: 45 Attestation: I have personally provided critical care time. Time includes review of lab data, radiology results, discussion with consultants, and monitoring for potential decompensation. Intervention performed as documented. Discharge Plan Discharge Clinical Impression: Acute pancreatitis Patient Disposition: Home, Self-Care Instructions: Pancreatitis (ED) Prescriptions: No Action cyclobenzaprine 10 mg tablet 10 mg PO TID PRN (Reason: muscle spasm) Qty: 14 0RF prednisone 20 mg tablet 20 mg PO DAILY 5 Days Qty: 5 0RF diclofenac sodium [Voltaren Arthritis Pain] 1 % gel 2 g topical QID Qty: 100 0RF Rx Instructions: apply to single elbow, wrist or hand; for hand includes palm/fingers/back of hand erythromycin 5 mg/gram (0.5 %) ointment 0.5 inch ophthalmic (eye) TID Qty: 3.5 0RF Rx Instructions: Apply to the right eye I have inch ribbon inside the eye 3 times a day for 5 days. oxycodone 5 mg tablet 5 mg PO TID PRN (Reason: pain) Qty: 14 0RF Rx Instructions: Partial Fill upon patient request. acetaminophen-codeine 300-15 mg tablet 1 tab PO Q6H PRN (Reason: pain) Qty: 10 0RF Print Language: Pashto
[2024-02-05 19:06] LABS: MANUAL DIFF FLAG NO
[2024-02-05 19:07] LABS: Basophils Absolute Auto 0.1 X10*3/uL (0.0-0.2); Basophils Percent Auto 0.5 % (0-2); Eosinophils Absolute Auto 0.1 X10*3/uL (0.0-0.4); Eosinophils Percent Auto 1.1 % (0-4); Hematocrit 43.6 % (37.0-47.0); Hemoglobin 15.5 g/dl (12.0-16.0); Imm Gran Abs Auto 0.02 X10*3/uL (0.00-0.03); Imm Gran Pct Auto 0.2 % (0.0-0.4); Lymphocytes Absolute Auto 4.4 X10*3/uL (1.2-4.9); Lymphocytes Percent Auto 39.1 % (20-40); Mean Corpuscular HGB Conc 35.6 g/dl (31.0-35.0); Mean Corpuscular Hemoglobin 31.8 pg (27.0-33.0); Mean Corpuscular Volume 89.3 fL (80.0-98.0); Monocytes Absolute Auto 0.5 X10*3/uL (0.1-1.2); Monocytes Percent Auto 4.7 % (2-11); Neutrophils Absolute Auto 6.2 x10*3/uL (2.0-8.3); Neutrophils Percent Auto 54.4 % (45-73); Platelet Count 259 X10*3/uL (160-400); Red Blood Count 4.88 X10*6/uL (4.20-5.50); Red Cell Distribution Width 11.8 % (11.0-16.0); White Blood Count 11.3 X10*3/uL (4.8-10.8)
[2024-02-05 19:11] LABS: Appearance Urine Clear; Color Urine Yellow; Glucose Urine UA >=1000 mg/dL (Negative); Leukocyte Esterase Urine Negative (Negative); Nitrite Urine Negative (Negative); Specific Gravity - Urine >= 1.030 (1.005-1.025); UMIC TRIGGER UACC YES; Urine Blood Negative (Negative); Urine Ketones Trace mg/dL (Negative); Urine Protein Negative (Neg-Trace)
[2024-02-05 19:20] LABS: Bacteria Urine None Seen (None Seen); Hyaline Casts Urine 0-2 /LPF (0-2); RBC Urine 0-2 /HPF (0-2); WBC Urine 0-5 /HPF (0-5)
[2024-02-05 19:21] LABS: INTERNATIONAL NORM RATIO 0.8 (0.9-1.1)
[2024-02-05 19:29] LABS: Alanine Aminotransferase 23 U/L (0-31); Albumin Level 4.1 g/dL (3.5-5.0); Alkaline Phosphatase 83 U/L (39-117); Amylase 51 U/L (28-100); Anion Gap 15 (12-20); Aspartate Amino Transferase 13 U/L (5-31); Bilirubin Total 0.2 mg/dL (0.0-1.0); Blood Urea Nitrogen 17 mg/dL (9-16); Calcium 9.9 mg/dL (8.4-10.2); Carbon Dioxide 25 mmol/L (22-29); Chloride 102 mmol/L (96-108); Creatinine Clr Calc Pharmacy 93.2; Estimated Glomerular Filt Rate > 60; Glucose Random 267 mg/dL (60-115); Lipase 97 U/L (8-78); Sodium 138 mmol/L (135-145); Total Protein 7.6 g/dL (6.5-8.0)
[2024-02-05 19:32] LABS: HCG Quantitative < 2 mIU/mL
[2024-02-05 20:33] VITALS: BP 131/88; PULSE 97; RESP 16; TEMP 36.7; O2SAT 98
[2024-02-05] MEDS: Ketorolac Tromethamine 60 MG/2 ML VIAL IM (21:23)
[2024-02-05 21:32] LABS: Glucose, Whole Blood 237 mg/dL (60-115)
--- NOTE | 2024-02-05 22:18 | PC.NURSE ---
pt reported severe abd pain, medicated per MAR
[2024-02-05] MEDS: iohexoL 350 MG/ML 100 ML INFUS..BTL IV (22:23)
[2024-02-05 23:58] VITALS: BP 108/69; PULSE 89; RESP 16; TEMP 36.7; O2SAT 96
[2024-02-06 01:16] VITALS: BP 136/56; PULSE 69; RESP 16; TEMP 36.6; O2SAT 99
== END 2024-02-06 01:17 | disposition home or self-care (01) ==
PROVIDERS: Registered Nurse Emergency; Emergency Provider Emergency Medicine; PCP Internal Medicine
DX: K85.90 Acute pancreatitis without necrosis or infection, unspecified (principal); E11.9 Type 2 diabetes mellitus without complications
CPT/HCPCS: 36415; 74018; 74177; 80053; 81001; 82150; 82947; 83690; 84702; 85025; 85610; 96372; 99284; J1885; Q9967

== ENCOUNTER 2024-07-11 11:11 | Emergency (ER) | payer MEDICAID, SELFPAY ==
[2024-07-11 11:30] VITALS: BP 108/66; PULSE 120; O2SAT 98
[2024-07-11 11:35] VITALS: BP 101/67; BP 108/66; PULSE 104; PULSE 120; RESP 18; TEMP 37.2; O2SAT 96; O2SAT 98; BMI 31.3
[2024-07-11 11:38] LABS: Glucose, Whole Blood 325 mg/dL (60-115)
[2024-07-11 11:40] VITALS: BP 101/67; PULSE 104; RESP 16; TEMP 37.2; O2SAT 96
--- NOTE | 2024-07-11 12:03 | ED_ITS ---
HPI - Back Pain/Injury General Chief Complaint: Back Pain/Injury Stated Complaint: BACK PAIN RAD DOWN LEG PER EMS Time Seen by Provider: 07/11/24 11:27 Source: patient and RN notes reviewed Mode of arrival: ambulatory Limitations: no limitations History of Present Illness ED Provider: Tamanna Barron PA-C HPI Narrative: This is a 48-year-old female, with a history of diabetes and chronic back pain, who presents emergency department with acute on chronic back pain x2 months. Patient states that while she was traveling she was lifting beer bottles and felt pain in her back. She states that since then she has had ongoing back pain. She has tried many different medications to help alleviate her pain including Toradol, tramadol, gabapentin without any relief. She called her primary care physician as she would like to be re-evaluated by [facility] and states that he needed to have a repeat MRI performed of her back. She is scheduled to have an MRI performed on Thursday of this week. She states that she used to get injections in her back at [facility] and states that this would help her pain tremendously in his hoping to have this performed again. She denies any urinary or bowel retention or incontinence. No saddle anesthesia. She was able to walk however states that she is unable to perform her activities of daily living secondary to her back pain. She denies any fevers, chills, chest pain, shortness breath, abdominal pain, nausea, vomiting or diarrhea. She was seen at [facility] 2 days ago and was given morphine and Tylenol without any diagnostic imaging performed. She has not taken any medications today to treat her pain. No history of IVDA No other complaints or concerns at this time. MD elicited complaint: back pain Pertinent past history: prior back pain Onset (ago): day(s) Timing: constant Severity: moderate Similar Symptoms Previously: Yes Quality: aching Location: lumbar spine and right lower back Radiation: buttocks Exacerbating factors: none Relieving factors: none Context: while lifting and turning/twisting Associated symptoms: denies other symptoms Work related injury: No Related Data Previous Rx's ?Medication ?Instructions ?Recorded erythromycin 5 mg/gram (0.5 %) eye 0.5 inch ophthalmic (eye) TID #3.5 03/31/22 ointment grams oxycodone 5 mg tablet 5 mg PO TID PRN pain #14 tabs 03/31/22 cyclobenzaprine 10 mg tablet 10 mg PO TID PRN muscle spasm #14 07/02/22 tabs diclofenac sodium 1 % topical gel 2 g topical QID #100 grams 07/02/22 (Voltaren Arthritis Pain) prednisone 20 mg tablet 20 mg PO DAILY 5 days #5 tabs 07/02/22 acetaminophen 300 mg-codeine 15 mg 1 tab PO Q6H PRN pain #10 tabs 01/15/24 tablet ondansetron 4 mg disintegrating 4 mg PO Q6H PRN nausea and 02/06/24 tablet vomiting #14 tabs tramadol 50 mg tablet 50 mg PO TID PRN pain #9 tabs 02/06/24 cyclobenzaprine 10 mg tablet 10 mg PO TID PRN muscle spasm #14 07/11/24 tabs lidocaine 5 % topical patch 1 patch topical DAILY #30 ea 07/11/24 (Lidoderm) morphine 15 mg immediate release 15 mg PO Q4-6H PRN pain #7 tabs 07/11/24 tablet naproxen 500 mg tablet 500 mg PO BID PRN pain #20 tabs 07/11/24 Allergies Allergy/AdvReac Type Severity Reaction Status Date / Time aspirin [ASPIRIN] Allergy Unknown TACHYCARDIA, Verified 07/11/24 11:38 heart racing ibuprofen [From MOTRIN] Allergy Unknown N/V Verified 07/11/24 11:38 penicillin V Allergy Unknown rash, Verified 07/11/24 11:38 itch, rash Penicillins [PENICILLINS] Allergy Unknown ITCHING/JOSE Verified 07/11/24 11:38 H Motrin Allergy Unknown vomiting Uncoded 07/11/24 11:38 Review of Systems Review of Systems: Yes all other systems are reviewed and are negative Constitutional: Constitutional: Reports as per [facility] Past Medical History Medical History Diabetes mellitus Social History Social History (Updated 07/02/22 @ 08:40 by Sofía Yin DO) Patient Tobacco Use Status: Never used Tobacco Advance Directives: No Advance Directives Information Provided: Yes Do you have a plan to hurt others: No Plan Physical Exam Vital Signs: Vital Signs: Last Vital Signs Temp 98.9 F 07/11/24 15:02 Pulse 104 H 07/11/24 15:02 Resp 16 07/11/24 15:02 BP 101/67 07/11/24 15:02 Pulse Ox 96 07/11/24 15:02 O2 Del Method Room Air 07/11/24 15:02 BMI result Body Mass Index 31.3 Const: General: cooperative, comfortable and no acute distress Orientation/consciousness: patient oriented x3 Limitations: no limitations HEENT: Head: Yes normal to inspection, Yes normocephalic and Yes atraumatic Ears: hearing grossly normal bilaterally General nose exam: Normal external nose present Face and sinus: Yes normal facial exam Mouth: Normal oral and palatal mucosa present, oropharynx normal and moist mucous membranes Throat: Yes posterior oropharynx normal Eyes: General: appearance normal, both eyes and all related structures Eyelids: Yes eyelids normal Conjunctivae: conjunctivae normal Sclerae: sclerae normal Pupils: Equal, round and reactive pupils present EOM: EOMs intact bilaterally Neck: Neck: Yes normal visual inspection, Yes full ROM and Yes no lymphadenopathy Lymphatic: no lymphadenopathy noted Chest: Chest palpation & inspection: normal inspection of the chest Resp: Effort & Inspection: normal respiratory effort and able to speak in complete sentences Auscultation: clear to auscultation bilaterally, no crackles, no rales, no rhonchi and no wheezes Cardio: Rate: regular rate Rhythm: regular rhythm Heart sounds: S1 normal heart sound present and S2 normal heart sound present GI: Inspection: Yes normal to inspection Back/Spine/Pelvis: Other: No midline spine tenderness on examination. Patient has tenderness palpation along the right SI joint extending into her right buttocks. Negative straight leg raise. Strong DP pulse. DTR 2+ No calf tenderness. Skin: General skin exam: no rashes or lesions noted Trauma: no lacerations or abrasions Wounds: no wounds Neuro: General: patient oriented x3 and moves all extremities Cranial nerves: Yes Equal, round and reactive pupils present Extrem: General: Yes normal to inspection Right upper extremity: normal to inspection Left upper extremity: normal to inspection Right lower extremity: normal to inspection Left lower extremity: normal to inspection Course Reevaluation(s) Reevaluation #1: pt sxs improved. She is ambulatory in department. she was given return precautions. SHe will F/U outpatient. Pt stable for d.c. Medications Administered Discontinued Medications Generic Name Dose Route Start Last Admin Trade Name Freq PRN Reason Stop Dose Admin Diazepam 2 mg 07/11/24 12:21 07/11/24 12:54 Diazepam 2 Mg Tablet PO 07/11/24 12:22 2 mg ONCE ONE Administration Ketorolac Tromethamine 30 mg 07/11/24 12:21 07/11/24 12:56 Ketorolac Tromethamine 30 Mg/Ml Vial IM 07/11/24 12:22 30 mg ONCE ONE Administration Medical Decision Making Medical Decision Making [facility] Narrative: This is a 48-year-old female, with a history of diabetes and chronic back pain, who presents emergency department with complaints of acute on chronic back pain for the last 2 months. On arrival, patient is slightly tachycardic at 104bpm., otherwise all vital signs within normal limits. She is afebrile and speaking in full sentences. She states that she was ambulatory for several minutes this morning however pain has been worsening. She denies history of IVDA. Differential diagnoses includes lumbago versus musculoskeletal spasm / strain versus sciatica. No back pain red flags on history or physical. Presentation not consistent with malignancy (lack of history of malignancy, lack of B symptoms), fracture (no trauma, no bony tenderness to palpation), cauda equina syndrome (no bowel or urinary incontinence/retention, no saddle anesthesia, no distal weakness), pyelonephritis (afebrile, no CVAT, no urinary symptoms). Given the clinical picture, no indication for imaging at this time. I advised we could get xrays due to lifting injury several weeks ago however pt declines d/t MRI on thu. Will medicate and re-evaluate Differential Diagnosis Differential Diagnoses: The differential diagnosis associated with the presentation includes See above Lab Data [facility] Lab Attestation statement: I reviewed the patient's lab results. Hyperglycemic at 325 patient has a history of diabetes Labs: Lab Results 07/11/24 Range/Units 11:34 POC Glucose 325 H (60-115) mg/dL Discharge Plan Discharge Clinical Impression: Lumbar radiculopathy Patient Disposition: Home, Self-Care Instructions: Lumbar Radiculopathy (ED) Additional Instructions: You were seen in the emergency department due to low back pain. We medicated you with a medication called Valium and Toradol. Please follow-up with your primary care physician regarding this visit. Please go to your MRI appointment this Thursday as scheduled. Please take prescribed naproxen as needed for inflammation as well as muscle relaxants. Make sure you take the naproxen with food as this can cause an upset stomach. You may also use Lidoderm patches as needed. Flexeril (cyclobenzaprine) as a muscle relaxants, please be advised that this can cause drowsiness, do not drink alcohol or drive while taking this medication. If any new or worsening symptoms occur including but not limited to inability to walk, loss of bowel or bladder control, please seek emergent care. Prescriptions: New naproxen 500 mg tablet 500 mg PO BID PRN (Reason: pain) Qty: 20 0RF cyclobenzaprine 10 mg tablet 10 mg PO TID PRN (Reason: muscle spasm) Qty: 14 0RF morphine 15 mg tablet 15 mg PO Q4-6H PRN (Reason: pain) Qty: 7 0RF Rx Instructions: Partial Fill upon patient request. lidocaine [Lidoderm] 5 % adhesive patch,medicated 1 patch topical DAILY Qty: 30 0RF Rx Instructions: leave on most painful area for up to 12 hrs No Action cyclobenzaprine 10 mg tablet 10 mg PO TID PRN (Reason: muscle spasm) Qty: 14 0RF prednisone 20 mg tablet 20 mg PO DAILY 5 Days Qty: 5 0RF diclofenac sodium [Voltaren Arthritis Pain] 1 % gel 2 g topical QID Qty: 100 0RF Rx Instructions: apply to single elbow, wrist or hand; for hand includes palm/fingers/back of hand erythromycin 5 mg/gram (0.5 %) ointment 0.5 inch ophthalmic (eye) TID Qty: 3.5 0RF Rx Instructions: Apply to the right eye I have inch ribbon inside the eye 3 times a day for 5 days. oxycodone 5 mg tablet 5 mg PO TID PRN (Reason: pain) Qty: 14 0RF Rx Instructions: Partial Fill upon patient request. acetaminophen-codeine 300-15 mg tablet 1 tab PO Q6H PRN (Reason: pain) Qty: 10 0RF tramadol 50 mg tablet 50 mg PO TID PRN (Reason: pain) Qty: 9 0RF ondansetron 4 mg tablet,disintegrating 4 mg PO Q6H PRN (Reason: nausea and vomiting) Qty: 14 0RF Interventions: ED Discharge Assessment Last Done: 07/11/24 15:02 Discharge Date/Time: 07/11/24 15:03 Print Language: Pashto
[2024-07-11] MEDS: diazePAM 2 MG TABLET PO (12:54)
[2024-07-11] MEDS: Ketorolac Tromethamine 30 MG/ML VIAL IM (12:56)
[2024-07-11 14:31] VITALS: BP 101/67; PULSE 104; RESP 16; TEMP 37.2; O2SAT 96
[2024-07-11 15:02] VITALS: BP 101/67; PULSE 104; RESP 16; TEMP 37.2; O2SAT 96
== END 2024-07-11 15:03 | disposition home or self-care (01) ==
PROVIDERS: Emergency Provider Emergency Medicine; PCP Internal Medicine
DX: M54.16 Radiculopathy, lumbar region (principal); M54.50 Low back pain, unspecified; E11.9 Type 2 diabetes mellitus without complications
CPT/HCPCS: 82947; 96372; 99283; 99284; J1885

== ENCOUNTER 2024-07-27 07:11 | Emergency (ER) | payer MEDICAID, SELFPAY ==
[2024-07-27 07:18] VITALS: BP 116/71; PULSE 98; RESP 16; TEMP 36.9; O2SAT 99; BMI 29.8
[2024-07-27] MEDS: ondansetron HCL 4 MG/2 ML VIAL IVPUSH (07:34)
[2024-07-27] MEDS: HYDROmorphone HCl 1 MG/ML SYRINGE IVPUSH ×2 (07:34→10:42)
[2024-07-27] MEDS: Lidocaine 4 % Cream KIT 1 APPL TOPICAL (07:35)
--- NOTE | 2024-07-27 07:57 | PC.NURSE ---
patient noted to have abscess under right breast, draining green pus, smell is foul. lmx applied to area for ED provider to drain.
--- NOTE | 2024-07-27 07:59 | ED.BACK ---
HPI - Back Pain/Injury General Chief Complaint: Back Pain/Injury Stated Complaint: LOW BACK PAIN X5M FROM HERNIATED DISC,HIGH BS 415 Source: patient, EMS and old records reviewed Mode of arrival: EMS Limitations: no limitations History of Present Illness ED Provider: BRENDA BUCK Narrative: 48 yo female with PMH of DM and known L5 disc herniation with pain down RLE currently planning to be seen by our spine team today at 1pm who presents with 4 months of worsening pain. She has no numbness, weakness, saddle anesthesia, loss of control of bowel or bladder. Today the pain was too severe and she couldn't handle it. Not on thinners. The patient also reports 4 days of abscess under R breast no n/v/d or fevers. MD elicited complaint: back pain Pertinent past history: prior back pain Onset (ago): month(s) (4) Timing: progressively worsening Severity: severe Similar Symptoms Previously: Yes Quality: sharp Location: lumbar spine and sacrum Radiation: right leg below the knee Exacerbating factors: movement Relieving factors: immobilization Context: other Associated symptoms: denies other symptoms Treatments prior to arrival: NSAIDS, other medications, prescription analgesics and other medications Work related injury: No Related Data Previous Rx's ?Medication ?Instructions ?Recorded erythromycin 5 mg/gram (0.5 %) eye 0.5 inch ophthalmic (eye) TID #3.5 03/31/22 ointment grams oxycodone 5 mg tablet 5 mg PO TID PRN pain #14 tabs 03/31/22 cyclobenzaprine 10 mg tablet 10 mg PO TID PRN muscle spasm #14 07/02/22 tabs diclofenac sodium 1 % topical gel 2 g topical QID #100 grams 07/02/22 (Voltaren Arthritis Pain) prednisone 20 mg tablet 20 mg PO DAILY 5 days #5 tabs 07/02/22 acetaminophen 300 mg-codeine 15 mg 1 tab PO Q6H PRN pain #10 tabs 01/15/24 tablet ondansetron 4 mg disintegrating 4 mg PO Q6H PRN nausea and 02/06/24 tablet vomiting #14 tabs tramadol 50 mg tablet 50 mg PO TID PRN pain #9 tabs 02/06/24 cyclobenzaprine 10 mg tablet 10 mg PO TID PRN muscle spasm #14 07/11/24 tabs lidocaine 5 % topical patch 1 patch topical DAILY #30 ea 07/11/24 (Lidoderm) morphine 15 mg immediate release 15 mg PO Q4-6H PRN pain #7 tabs 07/11/24 tablet naproxen 500 mg tablet 500 mg PO BID PRN pain #20 tabs 07/11/24 cephalexin 500 mg capsule 500 mg PO QID 7 days #28 caps 07/27/24 doxycycline hyclate 100 mg capsule 100 mg PO BID 7 days #14 caps 07/27/24 ondansetron 4 mg disintegrating 4 mg PO Q8H PRN nausea and 07/27/24 tablet vomiting #20 tabs Allergies Allergy/AdvReac Type Severity Reaction Status Date / Time aspirin [ASPIRIN] Allergy Unknown TACHYCARDIA, Verified 07/27/24 07:19 heart racing ibuprofen [From MOTRIN] Allergy Unknown N/V Verified 07/27/24 07:19 penicillin V Allergy Unknown rash, Verified 07/27/24 07:19 itch, rash Penicillins [PENICILLINS] Allergy Unknown ITCHING/JOSE Verified 07/27/24 07:19 H Motrin Allergy Unknown vomiting Uncoded 07/27/24 07:19 Review of Systems Review of Systems: Constitutional : No Weight loss, No Fever, No Chills, ENT/Mouth : No Hearing loss, No Ear Pain, No Nasal Congestion, No Sinus Pain, No Hoarseness, No sore throat, No Rhinorrhea, No Swallowing Difficulty Cardiovascular : No Chest Pain, No SOB Respiratory : No Cough, No Dyspnea Gastrointestinal : No Nausea, No Vomiting, No Diarrhea, No abdominal Pain, No Hematochezia, No Melena Genitourinary : No Dysuria, No Urinary Frequency, No Hematuria, No Urinary Incontinence, Musculoskeletal : positive back pain, pos skin abscess Skin : No Skin Lesions, No rash Neuro : No Weakness, No Numbness, No Paresthesias, no loss of bowel or bladder incontinence, no saddle anesthesia All other systems reviewed and are negative PMFSH Past Medical History Attestation statement: The following information was validated with the patient. Source: old records reviewed Medical History Diabetes mellitus Social History Social History Patient Tobacco Use Status: Never used Tobacco Advance Directives: No Do you have a plan to hurt others: No Plan Physical Exam Vital Signs: Vital Signs: Last Vital Signs Temp 97.7 F 07/27/24 08:10 Pulse 89 07/27/24 08:10 Resp 16 07/27/24 08:10 BP 123/81 07/27/24 08:10 Pulse Ox 99 07/27/24 08:10 O2 Del Method Room Air 07/27/24 08:10 BMI result Body Mass Index 29.8 Appearance: Alert. Oriented X3. No acute distress. Eyes: Pupils equal, round and reactive to light. ENT: Pharynx normal. Neck: Normal inspection. Neck supple. CVS: Normal heart rate and rhythm. Pulses normal. Chest: inferior breast 3cm abscess with point and green draining no overt cellulitis does not involve nipple and nipple is not retracted breast itself is not cellulitic Respiratory: No respiratory distress. Breath sounds normal. Abdomen: Soft and nontender. Skin: Skin warm and dry. Normal skin color. Normal skin turgor. Extremities: No lower extremity edema. No calf ttp Neuro: Oriented X 3. No motor deficit. No sensory deficit. Medications Administered Discontinued Medications Generic Name Dose Route Start Last Admin Trade Name Freq PRN Reason Stop Dose Admin Cephalexin HCl 500 mg 07/27/24 08:43 07/27/24 08:47 Cephalexin 500 Mg Capsule PO 07/27/24 08:44 500 mg ONCE ONE Administration Doxycycline Monohydrate 100 mg 07/27/24 08:43 07/27/24 08:47 Doxycycline Monohydrate 100 Mg Capsule PO 07/27/24 08:44 100 mg ONCE ONE Administration Hydromorphone HCl 1 mg 07/27/24 07:28 07/27/24 07:34 Hydromorphone Hcl 1 Mg/Ml Syringe IVPUSH 07/27/24 07:29 1 mg ONCE ONE Administration Protocol Lidocaine HCl 1 appl 07/27/24 07:28 07/27/24 07:35 Lidocaine 4 % Cream Kit TOPICAL 07/27/24 07:29 1 appl ONCE ONE Administration Protocol Lidocaine HCl 5 ml 07/27/24 07:29 07/27/24 08:30 Lidocaine Hcl 1 % Mpf 5 Ml Vial SUBCUT 07/27/24 07:30 5 ml ONCE ONE Administration Ondansetron HCl 4 mg 07/27/24 07:28 07/27/24 07:34 Ondansetron Hcl 4 Mg/2 Ml Vial IVPUSH 07/27/24 07:29 4 mg ONCE ONE Administration Medical Decision Making Medical Decision Making MDM Narrative: 48 yo female with PMH of DM and known L5 disc herniation here with typical R sided low back pain but no red flags on exam at this time will treat her pain she has no caude equina symptoms and is NV intact. Also has draining R breast abscess but no systemic symptoms will express more purulence and start on oral antibiotics. Plan will be to get her comfortable and to appoitment with spine team at 1pm. Differential Diagnosis Differential Diagnoses: The differential diagnosis associated with the presentation includes sciatica abscess Admission/Observation Consideration of admission/observation: Escalation of care including admission/observation considered Independent Historian Clinical information obtained from an independent historian. History obtained from or confirmed by: EMS External Record Review External record reviewed: Outpatient record Procedures Abscess I/D Site: chest Side (if applicable): right Local Anesthetic: lidocaine 1% Amount of anesthesia used (mL): 2 Technique: needle aspiration Amount of fluid expressed (mL): 5 Sent for culture/gram staining?: No Irrigation: No Packing used?: none Discharge Plan Discharge Clinical Impression: Lumbar radiculopathy, Abscess of breast Patient Disposition: Home, Self-Care Instructions: Abscess (ED), Back Pain (ED) Additional Instructions: return for any worsening symptoms or concerns such as fevers, vomiting, rash spreads across the breast - you need to call and follow up with the breast surgeon listed below follow up with the spine doctor On a cephalosporin?antibiotic, softer bowel movements are to be expected. Call your provider if you move your bowels more than 4 times a day, your bowel movements are almost all liquid, or you get a rash.?? On doxycycline, do not take pills immediately before going to bed and swallow pills with plenty of water. Avoid direct sunlight, iron, antacids, and Pepto Bismol. Call your provider if you develop new ringing in your ears, new problems hearing, dizziness, difficulty swallowing, rash, abdominal discomfort, nausea, or diarrhea.? Prescriptions: New doxycycline hyclate 100 mg capsule 100 mg PO BID 7 Days Qty: 14 0RF cephalexin 500 mg capsule 500 mg PO QID 7 Days Qty: 28 0RF ondansetron 4 mg tablet,disintegrating 4 mg PO Q8H PRN (Reason: nausea and vomiting) Qty: 20 0RF No Action cyclobenzaprine 10 mg tablet 10 mg PO TID PRN (Reason: muscle spasm) Qty: 14 0RF prednisone 20 mg tablet 20 mg PO DAILY 5 Days Qty: 5 0RF diclofenac sodium [Voltaren Arthritis Pain] 1 % gel 2 g topical QID Qty: 100 0RF Rx Instructions: apply to single elbow, wrist or hand; for hand includes palm/fingers/back of hand erythromycin 5 mg/gram (0.5 %) ointment 0.5 inch ophthalmic (eye) TID Qty: 3.5 0RF Rx Instructions: Apply to the right eye I have inch ribbon inside the eye 3 times a day for 5 days. oxycodone 5 mg tablet 5 mg PO TID PRN (Reason: pain) Qty: 14 0RF Rx Instructions: Partial Fill upon patient request. acetaminophen-codeine 300-15 mg tablet 1 tab PO Q6H PRN (Reason: pain) Qty: 10 0RF tramadol 50 mg tablet 50 mg PO TID PRN (Reason: pain) Qty: 9 0RF ondansetron 4 mg tablet,disintegrating 4 mg PO Q6H PRN (Reason: nausea and vomiting) Qty: 14 0RF naproxen 500 mg tablet 500 mg PO BID PRN (Reason: pain) Qty: 20 0RF cyclobenzaprine 10 mg tablet 10 mg PO TID PRN (Reason: muscle spasm) Qty: 14 0RF morphine 15 mg tablet 15 mg PO Q4-6H PRN (Reason: pain) Qty: 7 0RF Rx Instructions: Partial Fill upon patient request. lidocaine [Lidoderm] 5 % adhesive patch,medicated 1 patch topical DAILY Qty: 30 0RF Rx Instructions: leave on most painful area for up to 12 hrs Referrals: Alfonso Maldonado MD [Physician] - (call to schedule appointment for breast follow up) Print Language: [place]
[2024-07-27 08:10] VITALS: BP 123/81; PULSE 89; RESP 16; TEMP 36.5; O2SAT 99
--- NOTE | 2024-07-27 08:20 | MHC.EDTECH ---
Hourly round and vitals completed.Patient rest quietly in her bed and call belt within her reach.
[2024-07-27] MEDS: Lidocaine HCl 1 % MPF 5 ML VIAL SUBCUT (08:30)
--- NOTE | 2024-07-27 08:37 | MHC.EDTECH ---
I helped Dr. Qiu to drain the patient's abscess on the right side of her breast and I put non-adherent pad on the area.
[2024-07-27] MEDS: cephALEXin 500 MG CAPSULE PO (08:47)
[2024-07-27] MEDS: Doxycycline Monohydrate 100 MG CAPSULE PO (08:47)
[2024-07-27 10:16] VITALS: BP 121/79; PULSE 87; RESP 16; TEMP 36.6; O2SAT 98
== END 2024-07-27 11:54 | disposition home or self-care (01) ==
PROVIDERS: Emergency Provider Emergency Medicine; PCP Internal Medicine
DX: M54.16 Radiculopathy, lumbar region (principal); E11.9 Type 2 diabetes mellitus without complications; N61.1 Abscess of the breast and nipple; Z79.899 Other long term (current) drug therapy
CPT/HCPCS: 10021; 10160; 96374; 96375; 99212; 99284; J1171; J2003; J2405

== ENCOUNTER 2024-07-27 12:29 | Outpatient (AMB) | payer MEDICAID, SELFPAY ==
--- NOTE | 2024-07-27 08:56 | HO.SPINEOV ---
Intake Visit Reasons: LBP Intake Note: Ms. Reyes is here today c/o right sided low back pain Detective Bowling Alley Required: Yes Detective Bowling Alley Name: Tablet casework specialist: [id number] Allergies aspirin [ASPIRIN] Allergy (Unknown, Verified 07/27/24 13:05) TACHYCARDIA, heart racing ibuprofen [From MOTRIN] Allergy (Unknown, Verified 07/27/24 13:05) N/V penicillin V Allergy (Unknown, Verified 07/27/24 13:05) rash, itch, rash Penicillins [PENICILLINS] Allergy (Unknown, Verified 07/27/24 13:05) ITCHING/RASH Motrin Allergy (Unknown, Uncoded 07/27/24 07:19) vomiting Assessment & Plan Assessment & Plan (1) Lumbar radiculopathy: Code(s): M54.16 - Radiculopathy, lumbar region Category: Medical Plan Dear DENISE Wadsworth, Thank you for referring Landy to our office today. She is a pleasant 48-year-old female who comes in today with a chief complaint of low back pain and shooting pains into her bilateral lower extremities. She was referred to us urgently, and thankfully we had an opening to see her promptly. She reports that she has been in severe pain for the last 4 months. She identifies an inciting incident of the vacation to the [place] during which time she attempted to help someone move something very heavy. As a direct result of this she had a sharp pain in her low back followed by shooting pains down her right lower extremity. When describing her shooting pain she states that it starts in her low back shoots over her buttocks, then skips her thigh, and travels down her enedina-lateral calf, terminating at the top of her foot. She does report some numbness in her right toes as well, but states she has diabetic neuropathy and reports this as her baseline. She had a right-sided TFESI completed at L5 last week, and reports no significant relief for pain. She was previously taking tramadol and tizanidine help indicate her pain, but is now so severe that she needs morphine to help keep her pain at bay. PMH: Coronary artery disease, depression, asthma, osteoarthritis, type 2 diabetes (unknown last A1C) Social hx: Patient smokes 1 pack cigarettes per day. Reports no substance use. Medications: Morphine 15 mg every 4 hours, cyclobenzaprine, diclofenac, lidocaine patches, naproxen, ondansetron. Allergies: Aspirin, ibuprofen, penicillin. Physical exam: She is in obvious agony on exam, laying on her left side on the exam table for the duration of this visit until prompted to sit upright for the examination. The patient has 5/5 strength in her upper and lower extremities, but does elicit significant pain to right-sided iliopsoas testing. She has no significant sensational deficits outside of her baseline. She ambulates with a severely antalgic gait favoring her left side. (+) right-sided straight leg raise. (-) bilateral clonus. (-) Browne's. Imaging review: MRI of the lumbar spine completed at [facility] on 07/13/2024 shows a disc hernaition at L4-5 causing severe right sided foraminal stenosis and effacement of the right L5 nerve root. shows evidence of disc degeneration and loss of disc height with type 2 degenerative Modic endplate changes at L5-S1, with a small posterior disc bulge causing moderate bilateral foraminal stenosis at this level. Impression: Landy is a pleasant 48 y/o female who comes in today with a chief complaint of acute onset right-sided radicular pain stemming from a lifting injury she sustained while on vacation in the [place] 4 months ago. Her radiculopathy travels in a classic L5 nerve root distribution on the right. This corresponds well with the imaging seen. I believe the main causative agent for pain is the large right sided paracentric disc bulge at L4-5. She does also have significant degeneration at L5-S1 this is likely more chronic in nature. I would expect the patient to have quite a bit of back pain if this were the causative agent. The opposite is actually true, she reports little to no back pain but has severe right-sided leg pain. I evaluated the patient alongside Dr. Farah today who offered the patient a right-sided L4-5 lumbar microdiskectomy to address her lumbar radiculopathy. We discussed the spectrum of treatment options including continued conservative measures and the patient would like to proceed with surgery as she is in severe agony at this point. We had 1 cancellation next week on 08/04/24, and are tentatively planning to add her on for that day due to the severity of her pain. We will need to obtain her PCP records first to evaluate her A1C / diabetes treatment and clarify what if any cardiac concerns she has. Patient was given risk and benefits of surgery including but not limited to infection, hematoma, nerve injury, durotomy, weakness, bowel/bladder injury, persistent pain, as well as the option to continue with conservative treatment and patient wishes to proceed with surgery. They are aware they should stop NSAIDs 7 days prior to surgery. All questions were answered to the best of our ability. If there is anything about this patients medical history that we have overlooked or concerns you have about us proceeding with surgery we would appreciate any input you can offer. Thank you for allowing us to care for your patient. The total time spent with this visit with this patient was 45 minutes reviewing history, physical exam, MRI imaging review, and implementation of treatment plan or further diagnostic testing Alli Farah MD,PhD [facility] Coding Level of Care Code New Pt Level 4 (06865) Diagnoses Lumbar radiculopathy M54.16
== END 2024-07-27 13:52 | disposition home or self-care (01) ==
PROVIDERS: PCP Internal Medicine; Referring Provider Student in an Organized Health Care Education/Training Program; Visit Provider Physician Assistant
DX: M54.16 Radiculopathy, lumbar region (principal)
CPT/HCPCS: 99204

== ENCOUNTER 2025-01-02 07:48 | Emergency (ER) | payer MEDICAID, SELFPAY ==
[2025-01-02 07:53] VITALS: BP 125/75; PULSE 97; RESP 16; TEMP 37.1; O2SAT 97; BMI 32.2
--- NOTE | 2025-01-02 08:50 | ED_ITS ---
HPI - Dental/Oral General Chief complaint: Dental/Oral Stated complaint: Tooth Pain Time Seen by Provider: 01/02/25 08:22 Source: patient Mode of arrival: ambulatory Limitations: no limitations History of Present Illness ED Provider: CINDA PARRISH PA-C HPI Narrative: 49 year old female with pmhx significant for T2DM presents to the ED today for evaluation of dental pain x1 week. She reports seeing her dentist 5 days ago. She was prescribed antibiotics however her symptoms are not improving. She reports pain and swelling around both upper and lower teeth. She states she is going on vacation today and would like a stronger antibiotic. She did not contact her dentist regarding her continued symptoms. Her dentist originally informed her that these teeth will require excision at some point. Denies fever, chills, odynophagia, dysphagia, sore throat. Denies difficulty opening her mouth. Related Data Previous Rx's ?Medication ?Instructions ?Recorded erythromycin 5 mg/gram (0.5 %) eye 0.5 inch ophthalmic (eye) TID #3.5 03/31/22 ointment grams oxycodone 5 mg tablet 5 mg PO TID PRN pain #14 tabs 03/31/22 cyclobenzaprine 10 mg tablet 10 mg PO TID PRN muscle spasm #14 07/02/22 tabs diclofenac sodium 1 % topical gel 2 g topical QID #100 grams 07/02/22 (Voltaren Arthritis Pain) prednisone 20 mg tablet 20 mg PO DAILY 5 days #5 tabs 07/02/22 acetaminophen 300 mg-codeine 15 mg 1 tab PO Q6H PRN pain #10 tabs 01/15/24 tablet ondansetron 4 mg disintegrating 4 mg PO Q6H PRN nausea and 02/06/24 tablet vomiting #14 tabs tramadol 50 mg tablet 50 mg PO TID PRN pain #9 tabs 02/06/24 cyclobenzaprine 10 mg tablet 10 mg PO TID PRN muscle spasm #14 07/11/24 tabs lidocaine 5 % topical patch 1 patch topical DAILY #30 ea 07/11/24 (Lidoderm) morphine 15 mg immediate release 15 mg PO Q4-6H PRN pain #7 tabs 07/11/24 tablet naproxen 500 mg tablet 500 mg PO BID PRN pain #20 tabs 07/11/24 cephalexin 500 mg capsule 500 mg PO QID 7 days #28 caps 07/27/24 doxycycline hyclate 100 mg capsule 100 mg PO BID 7 days #14 caps 07/27/24 ondansetron 4 mg disintegrating 4 mg PO Q8H PRN nausea and 07/27/24 tablet vomiting #20 tabs clindamycin HCl 150 mg capsule 450 mg (3 x 150 mg) PO TID 7 days 01/02/25 #63 caps Allergies Allergy/AdvReac Type Severity Reaction Status Date / Time aspirin [ASPIRIN] Allergy Unknown TACHYCARDIA, Verified 01/02/25 07:54 heart racing ibuprofen [From MOTRIN] Allergy Unknown N/V Verified 01/02/25 07:54 penicillin V Allergy Unknown rash, Verified 01/02/25 07:54 itch, rash Penicillins [PENICILLINS] Allergy Unknown ITCHING/JOSE Verified 01/02/25 07:54 H Motrin Allergy Unknown vomiting Uncoded 07/27/24 07:19 Review of Systems Review of Systems: Constitutional: No fever, chills, fatigue, night sweats, weight changes ENT/Mouth: No ear pain, hearing loss, nasal congestion, sinus pain, rhinorrhea, sore throat, +dental pain Eyes: No eye pain, swelling, redness, vision changes, discharge Cardio: No chest pain, palpitations, ESPARZA, orthopnea, peripheral edema Pulm: No SOB, cough, sputum, wheezing, dyspnea, hemoptysis GI: No nausea, vomiting, hematemesis, abdominal pain, diarrhea, constipation, hematochezia, melena : No irregular bleeding, dysuria, frequency, urgency, hesitancy, hematuria, flank pain, urinary flow changes, urinary incontinence or retention MSK: No back pain, neck pain, joint pain, myalgias Skin: No lesions, rashes Neuro: No weakness, numbness, paresthesias, LOC, dizziness, headache Psych: No anxiety/panic, depression, SI/HI, AH/VH All other systems reviewed and are negative. [facility] Past Medical History Attestation statement: The following information was validated with the patient. Source: old records reviewed and nursing notes reviewed Medical History Diabetes mellitus Social History Social History Patient Tobacco Use Status: Never used Tobacco Advance Directives: No Advance Directives Information Provided: Yes Physical Exam Vital Signs: Vital Signs: Last Vital Signs Temp 98.7 F 01/02/25 09:43 Pulse 97 01/02/25 09:43 Resp 16 01/02/25 09:43 BP 125/75 01/02/25 09:43 Pulse Ox 97 01/02/25 09:43 O2 Del Method Room Air 01/02/25 09:43 BMI result Body Mass Index 32.2 vital signs stable, afebrile General: Well appearing, in no acute distress. Skin: Warm, dry, intact. No rashes or lesions. Head: Normocephalic, atraumatic. EENT: Hearing is intact b/l. Conjunctiva clear. PERRLA. EOM intact. Moist mucous membranes.? + No facial edema. Tongue and lips wnl + multiple dental caries and poor dentit ion. right upper and lower molars with localized periapical swelling to the buccal ginginva. No pointing. No active bleeding/ discharge. TTP. No palpable fluctuance. + No edema to buccal mucosa + Posterior oropharynx without erythema/ edema. Uvula midline. Controlling secretions and speaking in complete sentences + No submandublar, submental or cervical LAD. no anterior neck swelling. Cardiac: Chest wall symmetric. RRR Lungs: Normal respiratory effort without accessory muscle use. CTA bilaterally. Ext: Upper and lower extremities atraumatic, without tenderness, deformity, swelling or erythema. Neuro: AOx3. Normal speech. Ambulating with steady gait. Psych: Appropriate mood and affect. Responds appropriately to questions. Course Course Course Narrative: Patient noted to have dental infection. clearly not improving on current antibiotic. There is no evidence of abscess that warrants drainage at this time. Will treat patient's pain and patient will be discharged home on clindamycin to ensure there is no worsening infection for follow-up with dentist. Patient advised to follow up with dentist this week. Patient has remained stable throughout ED visit today. I discussed worrisome signs and symptoms and when to return to the ED. All questions answered at this time. Patient is agreeable with disposition and stable for discharge. Medical Decision Making Medical Decision Making MDM Narrative: 49 year old female with pmhx significant for T2DM presents to the ED today for evaluation of dental pain x1 week. vital signs stable. afebrile. she is nontoxic appearing and in NAD. on exam, there is no facial edema. Tongue and lips wnl. multiple dental caries and poor dentition. right upper and lower molars with localized periapical swelling to the buccal ginginva. No pointing. No active bleeding/ discharge. TTP. No palpable fluctuance. No edema to buccal mucosa. Posterior oropharynx without erythema/edema. Uvula midline. Controlling secretions and speaking in complete sentences. No submandublar, submental or cervical LAD. no anterior neck swelling. Differential includes dental/ periapical abscess/infection, apthous stomatitis. Unlikely mono, herpes, sialadenitis, sialolithiasis, [employer], retropharyngeal abscess, deep neck infection, osteomyelitis, facial cellulitis/ abscess, lymphoma. Plan for pain control, antibiotics, dental follow up outpatient. Differential Diagnosis Differential Diagnoses: The differential diagnosis associated with the presentation includes as above. Admission/Observation Not indicated. Tests considered The following testing was considered but not selected: I considered obtaining a CT of the soft tissues neck however these is no evidence of ludwigs angina or concern for deep tissue infection. Not warranted at this time. Prescription Management I considered prescription management with: Pain Medication and Antibiotic (clindamycin) Social Determinants Patient?s care significantly limited by Social Determinants of Health including: Other Social Determinant of Health Critical Care Time Critical Care Time Critical Care Time: No Discharge Plan Discharge Clinical Impression: Toothache Patient Disposition: Home, Self-Care Instructions: Toothache (ED) Additional Instructions: You were evaluated in ED today for dental pain. You have a dental infection. Clindamycin is an antibiotic that has been sent to your pharmacy for treatment. Take this as prescribed and do not skip any doses. Take this to completion or the infection may persist or worsen. Take tylenol/ motrin at home as needed for pain. YOU NEED TO FOLLOW UP WITH A DENTIST. You have been provided with a referral to [facility]. They are currently taking new clients. Call them to make an appointment. They will not call you. Return with new or worsening symptoms. In the case of an emergency call [phone]. [facility]: [phone] [address] [facility] [id number] Prescriptions: New clindamycin HCl 150 mg capsule 450 mg PO TID 7 Days Qty: 63 0RF No Action cyclobenzaprine 10 mg tablet 10 mg PO TID PRN (Reason: muscle spasm) Qty: 14 0RF prednisone 20 mg tablet 20 mg PO DAILY 5 Days Qty: 5 0RF diclofenac sodium [Voltaren Arthritis Pain] 1 % gel 2 g topical QID Qty: 100 0RF Rx Instructions: apply to single elbow, wrist or hand; for hand includes palm/fingers/back of hand erythromycin 5 mg/gram (0.5 %) ointment 0.5 inch ophthalmic (eye) TID Qty: 3.5 0RF Rx Instructions: Apply to the right eye I have inch ribbon inside the eye 3 times a day for 5 days. oxycodone 5 mg tablet 5 mg PO TID PRN (Reason: pain) Qty: 14 0RF Rx Instructions: Partial Fill upon patient request. acetaminophen-codeine 300-15 mg tablet 1 tab PO Q6H PRN (Reason: pain) Qty: 10 0RF tramadol 50 mg tablet 50 mg PO TID PRN (Reason: pain) Qty: 9 0RF ondansetron 4 mg tablet,disintegrating 4 mg PO Q6H PRN (Reason: nausea and vomiting) Qty: 14 0RF doxycycline hyclate 100 mg capsule 100 mg PO BID 7 Days Qty: 14 0RF cephalexin 500 mg capsule 500 mg PO QID 7 Days Qty: 28 0RF ondansetron 4 mg tablet,disintegrating 4 mg PO Q8H PRN (Reason: nausea and vomiting) Qty: 20 0RF naproxen 500 mg tablet 500 mg PO BID PRN (Reason: pain) Qty: 20 0RF cyclobenzaprine 10 mg tablet 10 mg PO TID PRN (Reason: muscle spasm) Qty: 14 0RF morphine 15 mg tablet 15 mg PO Q4-6H PRN (Reason: pain) Qty: 7 0RF Rx Instructions: Partial Fill upon patient request. lidocaine [Lidoderm] 5 % adhesive patch,medicated 1 patch topical DAILY Qty: 30 0RF Rx Instructions: leave on most painful area for up to 12 hrs Referrals: Bony Clark MD [Primary Care Provider] - Interventions: ED Discharge Assessment Last Done: 01/02/25 09:43 Discharge Date/Time: 01/02/25 09:43 Print Language: Japanese
[2025-01-02 09:43] VITALS: BP 125/75; PULSE 97; RESP 16; TEMP 37.1; O2SAT 97
== END 2025-01-02 09:43 | disposition home or self-care (01) ==
PROVIDERS: Emergency Provider Emergency Medicine; PCP Internal Medicine
DX: K08.89 Other specified disorders of teeth and supporting structures (principal)
CPT/HCPCS: 99282